=== PATIENT | male | born 1950 | race Caucasian/White ===

== ENCOUNTER → 2016-12-29 | Outpatient (CLI) | payer MEDICARE, OTHER ==
[~2016-12-29] MED LIST: ALLO300T PO; ALPH300C PO; AMLO10TA2 PO; ASCO10007 PO; ASPI-515 PO; CARV12.543 PO; CARV6.252 PO; CYAN100028 PO; DIGO125T PO; FLUT16SP2 NAS; FLUT1DIS3 INH; FURO-93 PO; FURO20TA3 PO; HYDR-3240 PO; LANS30CA PO; LEVO125T PO; LISI-467 PO; LISI40TA PO; LYSI500T3 PO; METF10002 PO; MILK87.5 PO; MONT10TA9 PO; MULT1TAB60 PO; NITR0.4T8 SL; POTA10TA11 PO; POTA20PA PO; REGADENOSON 0.4 MG/5 ML SYRINGE ONE; RIVA20TA PO; SOTA80TA18 PO; SPIR25TA3 PO; SUCR1ORA2 PO; TICA90TA PO; VITA1TAB3 PO; ZOLP10TA PO
== END | disposition home or self-care (01) ==
LOC: CFH 07:30
PROVIDERS: ATTEND Internal Medicine Cardiovascular Disease
DX: I25.10 Atherosclerotic heart disease of native coronary artery without angina pectoris (principal); I10 Essential (primary) hypertension; I48.91 Unspecified atrial fibrillation; Z98.61 Coronary angioplasty status
CPT/HCPCS: 78452; 93017; A9502; J2785

== ENCOUNTER → 2018-03-08 | Outpatient (CLI) | payer MEDICARE, OTHER ==
[~2018-03-08] MED LIST changes: +ASCO100019 PO; -ASCO10007 PO; +DAPA10TA PO; +GABA300C10 PO; +LEVO137T3 PO; +LEVO150T5 PO; +LINA1TAB5 PO; +METF850T2 PO; +NITR0.4T28 SL; -NITR0.4T8 SL; -REGADENOSON 0.4 MG/5 ML SYRINGE ONE; -SPIR25TA3 PO; +SPIR25TA5 PO; -SUCR1ORA2 PO; +SUCR1ORA5 PO
[2018-03-08 09:59] LABS: ALANINE AMINOTRANSFERASE 22 U/L (12-78); ALBUMIN 3.4 g/dL (3.4-5.0); ANION GAP 7 mmol/L (5-15); CALCIUM 8.9 mg/dL (8.5-10.1); CHLORIDE 103 mmol/L (98-107); CREATININE 1.14 mg/dL (0.7-1.3)
[2018-03-08 10:18] LABS: ALKALINE PHOSPHATASE 51 U/L (45-117); BILIRUBIN,TOTAL 0.8 mg/dL (0.2-1.0); TOTAL PROTEIN 7.1 g/dL (6.4-8.2)
== END | disposition home or self-care (01) ==
LOC: STAR 08:47
PROVIDERS: ATTEND Surgery
DX: Z01.818 Encounter for other preprocedural examination (principal); I48.91 Unspecified atrial fibrillation; E11.9 Type 2 diabetes mellitus without complications; Z85.850 Personal history of malignant neoplasm of thyroid
CPT/HCPCS: 36415; 80053; 93005

== ENCOUNTER 2018-03-15 06:06 | Day surgery (SDC) | payer MEDICARE, OTHER ==
[~2018-03-15] VITALS: Ht 175.3 cm; Wt 126.5 kg
[~2018-03-15 06:06] MED LIST changes: -POTA20PA PO; +POTA20PA31 PO
[2018-03-15 06:34] VITALS: BP 129/92
[2018-03-15] MEDS ORDERED: LACTATED RINGERS 1,000 ML IV SCH (06:34)
[2018-03-15] MEDS ORDERED: BACITRACIN 50,000 UNIT ONE (06:48)
[2018-03-15] MEDS ORDERED: BUPIVACAINE/PF-EPI 0.5% 1:200K ONE ×2 (06:48→08:48)
[2018-03-15] MEDS ORDERED: MIDAZOLAM 1 MG/ML, 2ML ONE (06:49)
[2018-03-15] MEDS ORDERED: FENTANYL PF 250 MCG/5ML ONE (06:50)
[2018-03-15] MEDS ORDERED: PROPOFOL 10 MG/ML, 20ML ONE (06:52)
[2018-03-15] MEDS ORDERED: ROCURONIUM 10MG/ML,5ML ONE (06:53)
[2018-03-15] MEDS ORDERED: GLYCOPYRROLATE 0.4 MG/2 ML, 2ML ONE (06:54)
[2018-03-15] MEDS ORDERED: NEOSTIGMINE 1 MG/ML, 10ML ONE (06:54)
[2018-03-15] MEDS ORDERED: CEFAZOLIN 1,000 MG ONE ×3 (06:55→07:37)
[2018-03-15] MEDS ORDERED: WATER-INJECTION,STERILE 10 ML IV ONE (06:55)
[2018-03-15] MEDS ORDERED: PROMETHAZINE 25 MG SUPP PR PRN (07:30)
[2018-03-15] MEDS ORDERED: OXYcodone 5 MG/5 ML ORAL.SOL UDC PO PRN (07:30)
[2018-03-15] MEDS ORDERED: PROMETHAZINE 12.5 MG SUPP PR PRN (07:30)
[2018-03-15] MEDS ORDERED: FENTANYL PF 100 MCG/2ML IV PRN (07:30)
[2018-03-15] MEDS ORDERED: LABETALOL 5MG/ML, 20ML IV PRN (07:30)
[2018-03-15] MEDS ORDERED: PROMETHAZINE 25 MG/ML, 1ML IV PRN (07:30)
[2018-03-15] MEDS ORDERED: ACETAMINOPHEN 500 MG TABLET PO ONE (07:30)
[2018-03-15] MEDS ORDERED: MEPERIDINE/PF 25MG/0.5ML IVPush PRN (07:30)
[2018-03-15] MEDS ORDERED: HYDROmorphone 1 MG/ML, 1ML IV PRN (07:30)
[2018-03-15] MEDS ORDERED: ONDANSETRON 2MG/ML, 2ML IV PRN (07:30)
[2018-03-15] MEDS ORDERED: MORPHINE SULFATE 4 MG/ML, 1ML IVPush PRN (07:30)
[2018-03-15] MEDS ORDERED: OxyconTIN ER 10 MG TAB.ER PO ONE (07:30)
[2018-03-15] MEDS ORDERED: hydrALAzine 20 MG/ML, 1ML IV PRN (07:30)
[2018-03-15] MEDS ORDERED: ONDANSETRON ODT 8 MG PO PRN (07:30)
[2018-03-15] MEDS ORDERED: GABAPENTIN 300 MG CAPSULE PO ONE (07:30)
[2018-03-15] MEDS ORDERED: LABETALOL 5MG/ML, 20ML ONE (07:55)
[2018-03-15] MEDS ORDERED: ALBUTEROL SULFATE 2.5 MG/3 ML ONE (09:27)
[2018-03-15] MEDS ORDERED: ALBUTEROL SULFATE 2.5 MG/3 ML NPPB PRN (09:30)
== END 2018-03-15 12:35 | disposition home or self-care (01) ==
LOC: OUT 06:06
PROVIDERS: ATTEND Surgery
DX: K42.0 Umbilical hernia with obstruction, without gangrene (principal); I48.91 Unspecified atrial fibrillation; I10 Essential (primary) hypertension; I25.10 Atherosclerotic heart disease of native coronary artery without angina pectoris; M10.9 Gout, unspecified; K21.9 Gastro-esophageal reflux disease without esophagitis; E11.40 Type 2 diabetes mellitus with diabetic neuropathy, unspecified; E66.9 Obesity, unspecified; Z68.41 Body mass index [BMI] 40.0-44.9, adult; G47.33 Obstructive sleep apnea (adult) (pediatric); J45.909 Unspecified asthma, uncomplicated; Z98.890 Other specified postprocedural states; Z98.52 Vasectomy status; Z72.89 Other problems related to lifestyle; Z79.899 Other long term (current) drug therapy; Z88.5 Allergy status to narcotic agent; Z88.8 Allergy status to other drugs, medicaments and biological substances
CPT/HCPCS: 49653; 82962; 94640; C1781; J0690; J2250; J2704; J2710; J3010; J7120; J7613

== ENCOUNTER → 2018-11-12 | Outpatient (CLI) | payer MEDICARE, OTHER ==
[~2018-11-12] MED LIST changes: -AMLO10TA2 PO; +AMLO10TA8 PO; +METF850T10 PO; -METF850T2 PO
== END | disposition home or self-care (01) ==
LOC: CVU 06:42
PROVIDERS: ATTEND Internal Medicine Cardiovascular Disease
DX: I08.3 Combined rheumatic disorders of mitral, aortic and tricuspid valves (principal); I48.91 Unspecified atrial fibrillation; I10 Essential (primary) hypertension
CPT/HCPCS: 93306

== ENCOUNTER → 2019-06-13 | Outpatient (CLI) | payer MEDICARE, OTHER ==
[~2019-06-13] MED LIST changes: +FURO40TA6 PO
== END | disposition home or self-care (01) ==
LOC: RAD 11:31
PROVIDERS: ATTEND Nurse Practitioner Family
DX: J44.1 Chronic obstructive pulmonary disease with (acute) exacerbation (principal); I51.7 Cardiomegaly; J98.6 Disorders of diaphragm
CPT/HCPCS: 71046

== ENCOUNTER 2019-09-09 21:03 | Emergency (ER) | payer MEDICARE, OTHER ==
[~2019-09-09] VITALS: Ht 175.3 cm; Wt 120.4 kg
[~2019-09-09 21:03] MED LIST changes: -DIGO125T PO; +DIGO125T85 PO; +MONT10TA11 PO; -MONT10TA9 PO
--- NOTE | 2019-09-09 21:37 | NUR ---
assessment made. PA at bedside.
--- NOTE | 2019-09-09 21:54 | NUR ---
ERP at bedside.
[2019-09-09] MEDS ORDERED: DIAZEPAM 5 MG TABLET ONE (21:56)
[2019-09-09] MEDS ORDERED: DIAZEPAM 5 MG TABLET PO ONE (22:00)
--- NOTE | 2019-09-09 22:00 | NUR ---
patient medicated. refused CT scan of head.
--- NOTE | 2019-09-09 22:11 | NUR ---
patient taken to X ray.
--- NOTE | 2019-09-09 22:54 | NUR ---
X ray resulted. chart up for MD to see. patient no complaints at this time.
--- NOTE | 2019-09-09 22:55 | NUR ---
chart up for re-eval.
--- NOTE | 2019-09-09 23:48 | NUR ---
PA talking to Dr. Moffett. CT Scan ordered.
[2019-09-09] MEDS ORDERED: HYDROcodone/APAP 5/325 TABLET ONE (23:55)
[2019-09-10] MEDS ORDERED: HYDROcodone/APAP 5/325 TABLET PO ONE
[2019-09-10 03:55] VITALS: BP 103/64
== END 2019-09-10 03:57 | disposition home or self-care (01) ==
LOC: ED 09-10 01:02
DX: S32.040A Wedge compression fracture of fourth lumbar vertebra, initial encounter for closed fracture (principal); S40.012A Contusion of left shoulder, initial encounter; W18.00XA Striking against unspecified object with subsequent fall, initial encounter; Y93.89 Activity, other specified; Y92.009 Unspecified place in unspecified non-institutional (private) residence as the place of occurrence of the external cause; Y99.8 Other external cause status; I25.10 Atherosclerotic heart disease of native coronary artery without angina pectoris; I48.91 Unspecified atrial fibrillation; E11.9 Type 2 diabetes mellitus without complications; I10 Essential (primary) hypertension
CPT/HCPCS: 72110; 72131; 72220; 93005; 99284; 99285

== ENCOUNTER 2020-05-10 11:27 | Inpatient (IN) | payer MEDICARE ==
[~2020-05-10] VITALS: Ht 175.3 cm; Wt 176.3 kg
[2020-05-10] VITALS (8 sets, daily range): BP systolic 97–132; BP diastolic 49–75
[~2020-05-10 11:27] MED LIST changes: +MULT-449 PO; -MULT1TAB60 PO
--- NOTE | 2020-05-10 11:48 | NUR ---
FIRST ENCOUNTERMENT: PT SENT TO ED FROM PCP D/T LOW H/H. PT STATES DOES NOT KNOW THE VALUES OF H/H BUT "IS BAD." PT ALSO HAS COMPLAINTS OF "BLACK TARRY STOOL." HX OF GIB IN 2013.
[2020-05-10] MEDS ORDERED: LEVO25TA4 PO (11:55)
[2020-05-10] MEDS ORDERED: LANS30CA PO (11:55)
[2020-05-10 12:00] LABS: BASOPHILS % (AUTO) 2 % (0-1); EOSINOPHILS % (AUTO) 2 % (1-7); LYMPHOCYTES % (AUTO) 15 % (22-44); MEAN CORPUSCULAR HEMOGLOBIN 23.6 pg (27.5-34.5); MEAN CORPUSCULAR HGB CONC 31.1 g/dL (33.2-36.2); MEAN PLATELET VOLUME 8.1 fL (7.4-10.4); MONOCYTES % (AUTO) 8 % (2-9); NEUTROPHILS % (AUTO) 73 % (42-75); PLATELET COUNT 278 x10^3/uL (130-400); RED BLOOD COUNT 2.91 x10^6/uL (4.38-5.82); RED CELL DISTRIBUTION WIDTH 20.7 % (9.4-14.8)
[2020-05-10 12:07] LABS: ANION GAP 7 mmol/L (5-15); CALCIUM 8.3 mg/dL (8.5-10.1); CHLORIDE 108 mmol/L (98-107)
[2020-05-10 12:08] LABS: INTERNATIONAL NORMALIZED RATIO 1.24 (0.93-1.1); PROTHROMBIN TIME 13.1 Seconds (9.6-11.5)
--- NOTE | 2020-05-10 12:09 | NUR ---
RN RECEIVED CRITICAL LAB VALUE FROM LAB H/H 6.9/.1. LAB VALUES [facility].
[2020-05-10 12:11] LABS: ALANINE AMINOTRANSFERASE 13 U/L (12-78); ALKALINE PHOSPHATASE 52 U/L (45-117); BILIRUBIN,TOTAL 0.5 mg/dL (0.2-1.0); CREATININE 0.96 mg/dL (0.7-1.3); TOTAL PROTEIN 6.1 g/dL (6.4-8.2)
--- NOTE | 2020-05-10 12:18 | NUR ---
RN OBTAINED TWO PIV'S 18 R AC 20 L AC. ERMD AT BEDSIDE GOING OVER POC.
[2020-05-10] MEDS ORDERED: PANTOPRAZOLE 40 MG IV IVPush ONE (12:30)
--- NOTE | 2020-05-10 12:50 | NUR ---
TASK RN-PURPLE SLIP SENT TO BLOOD BANK
[2020-05-10 12:56] LABS: ANISOCYTOSIS 1+; MD MORPH REVIEW ONLY; OVALOCYTES 1+
[2020-05-10 12:57] LABS: <PLATELET ESTIMATE> ADEQUATE; <PLT MORPHOLOGY> NORMAL PLT MORPH; HYPOCHROMIA 1+; POLYCHROMASIA 1+; TEAR DROPS 1+
--- NOTE | 2020-05-10 13:21 | NUR ---
RN VERIFIED BLOOD WITH ROBY CONNELLY. BLOOD BEING TRANSFUSED.
--- NOTE | 2020-05-10 13:36 | NUR ---
PT TOLERATING BLOOD TRANSFUSION W/O ANY S/S OF ADVERSE REACTION. URINAL PROVIDED TO PT. PT LYING IN HOSPITAL BED.
--- NOTE | 2020-05-10 14:25 | NUR ---
[employer] MAKER HELPER AT BEDSIDE ADMITTING PT.
[2020-05-10] MEDS ORDERED: ONDANSETRON ODT 4 MG PO PRN (14:30)
[2020-05-10] MEDS ORDERED: ONDANSETRON 2MG/ML, 2ML IVPush PRN (14:30)
--- NOTE | 2020-05-10 14:47 | NUR ---
PT LYING ON HOSPITAL BED WATCHING TV. NO NEEDS AT THIS TIME. FIRST UNIT OF BLOOD STILL BEING ADMINISTERED. PT TOLERATING INFUSING. RN TO CONTINUE TO MONITOR.
--- NOTE | 2020-05-10 15:14 | NUR ---
REVIEW OF CHART, ASSUME CARE OF PT AT THIS TIME.
--- NOTE | 2020-05-10 15:22 | NUR ---
REPORT TO ROBY HURTADO TO ASSUME PRIMARY CARE OF PT.
[2020-05-10] MEDS: INSULIN LISPRO 100 UNITS/ML, PEN SQ-INSULIN SCH ×2 (16:00→20:33)
--- NOTE | 2020-05-10 16:35 | NUR ---
1ST UNIT RBC COMPLETED. VSS/UPDATED ON TRANSFUSION RECORD. URINAL EMPTIED. PT UPDATED ON POC, INCLUDING NPO STATUS. PURPLE SLIP SENT TO BLOOD BANK. CALL LIGHT WITHIN REACH, PT WATCHING TV.
--- NOTE | 2020-05-10 16:58 | NUR ---
FS 56, CALL TO [facility] JEVON TO REPORT. PER JEVON, PT TO BE PLACED ON HYPOGLYCEMIC PROTOCOL AND ALLOWED CLEAR LIQUID DIET UNTIL MN. CLEAR LIQUID DIET ORDERED.
--- NOTE | 2020-05-10 17:08 | NUR ---
APPLE JUICE PROVIDED. 15 MINUTE CHECK ON BLOOD TRANSFUSION. NO ADVERSE REACTION, RATE INCREASED TO 300/HR.
--- NOTE | 2020-05-10 17:15 | NUR ---
ATTEMPT TO CALL REPORT. NURSE UNAVAILABLE, WILL CALL BACK.
--- NOTE | 2020-05-10 17:37 | NUR ---
BREAK RN: BLOOD SUGAR RECHECKED, NOW 118, CALL LIGHT WITHIN REACH, NO FURTHER NEEDS AT THIS TIME.
--- NOTE | 2020-05-10 17:40 | NUR ---
REPORT CALLED TO ROBY FREEMAN ON MEDICAL/TELEMETRY.
[2020-05-10] MEDS ORDERED: SALMETEROL INH SCH (21:00)
[2020-05-10] MEDS ORDERED: FLUTICASONE INH SCH (21:00)
[2020-05-10] MEDS: FUROSEMIDE 20 MG TABLET PO SCH (21:29)
[2020-05-10] MEDS: ZOLPIDEM 5MG TABLET PO PRN (21:29)
[2020-05-10] MEDS: PANTOPRAZOLE 40 MG IV IVPush SCH (21:29)
[2020-05-10] MEDS: GABAPENTIN 300 MG CAPSULE PO SCH (21:29)
[2020-05-11 01:59] VITALS: BP 101/61
[2020-05-11] MEDS: LEVOTHYROXINE 125 MCG TABLET PO SCH (05:45)
[2020-05-11 06:41] LABS: BASOPHILS % (AUTO) 2 % (0-1); EOSINOPHILS % (AUTO) 3 % (1-7); LYMPHOCYTES % (AUTO) 19 % (22-44); MEAN CORPUSCULAR HEMOGLOBIN 25.6 pg (27.5-34.5); MONOCYTES % (AUTO) 11 % (2-9); NEUTROPHILS % (AUTO) 66 % (42-75); PLATELET COUNT 241 x10^3/uL (130-400); RED BLOOD COUNT 2.97 x10^6/uL (4.38-5.82); RED CELL DISTRIBUTION WIDTH 21.9 % (9.4-14.8)
[2020-05-11 06:52] LABS: ALBUMIN 2.9 g/dL (3.4-5.0); ANION GAP 8 mmol/L (5-15); CALCIUM 8.1 mg/dL (8.5-10.1); CHLORIDE 109 mmol/L (98-107)
[2020-05-11] MEDS: INSULIN LISPRO 100 UNITS/ML, PEN SQ-INSULIN SCH ×4 (07:00→20:12)
[2020-05-11 07:05] LABS: ALANINE AMINOTRANSFERASE 11 U/L (12-78); ALKALINE PHOSPHATASE 47 U/L (45-117); BILIRUBIN,TOTAL 1.3 mg/dL (0.2-1.0); CREATININE 0.93 mg/dL (0.7-1.3); TOTAL PROTEIN 5.6 g/dL (6.4-8.2)
[2020-05-11] MEDS ORDERED: CHLORHEXIDINE 15 ML UDC ONE ×2 (07:32→07:52)
[2020-05-11 07:41] VITALS: BP 105/71
[2020-05-11] MEDS ORDERED: CHLORHEXIDINE 15 ML UDC MM ONE (08:00)
[2020-05-11] MEDS ORDERED: PROPOFOL 50 ML ONE (08:16)
[2020-05-11 08:23] LABS: MD SCAN
[2020-05-11] MEDS: GABAPENTIN 300 MG CAPSULE PO SCH ×2 (10:29→20:12)
[2020-05-11] MEDS: FUROSEMIDE 20 MG TABLET PO SCH ×2 (10:30→20:12)
[2020-05-11] MEDS: DIGOXIN 0.125 MG TABLET PO SCH (10:30)
[2020-05-11] MEDS: MULTIVITAMIN 1 TABLET PO SCH (10:30)
[2020-05-11] MEDS: PANTOPRAZOLE 40 MG IV IVPush SCH ×2 (10:30→20:12)
[2020-05-11] MEDS: ALLOPURINOL 300 MG TABLET PO SCH (10:30)
[2020-05-11] MEDS: MONTELUKAST 10 MG TABLET PO SCH (10:30)
[2020-05-11 12:23] VITALS: BP 104/67
[2020-05-11] MEDS: FLUTICASONE/VILANTEROL 200-25MCG/INH INH SCH (13:07)
[2020-05-11] MEDS ORDERED: MOVIPREP POWDER 1 PREP KIT PO ONE (18:00)
[2020-05-11 19:58] VITALS: BP 107/73
[2020-05-12] MEDS: ZOLPIDEM 5MG TABLET PO PRN (01:05)
[2020-05-12 01:17] VITALS: BP 104/69
[2020-05-12] MEDS: INSULIN LISPRO 100 UNITS/ML, PEN SQ-INSULIN SCH ×2 (07:00→11:00)
[2020-05-12 07:30] VITALS: BP 100/66
[2020-05-12] MEDS ORDERED: FENTANYL PF 100 MCG/2ML IV PRN (08:30)
[2020-05-12] MEDS ORDERED: PROPOFOL 50 ML ONE (08:37)
[2020-05-12 08:50] LABS: BASOPHILS % (AUTO) 1 % (0-1); EOSINOPHILS % (AUTO) 3 % (1-7); LYMPHOCYTES % (AUTO) 13 % (22-44); MEAN CORPUSCULAR HEMOGLOBIN 25.5 pg (27.5-34.5); MEAN CORPUSCULAR HGB CONC 31.9 g/dL (33.2-36.2); MEAN PLATELET VOLUME 7.8 fL (7.4-10.4); MONOCYTES % (AUTO) 8 % (2-9); NEUTROPHILS % (AUTO) 76 % (42-75); PLATELET COUNT 257 x10^3/uL (130-400); RED BLOOD COUNT 3.13 x10^6/uL (4.38-5.82); RED CELL DISTRIBUTION WIDTH 22.1 % (9.4-14.8)
[2020-05-12] MEDS ORDERED: CHLORHEXIDINE 15 ML UDC ONE (09:23)
[2020-05-12] MEDS: FLUTICASONE/VILANTEROL 200-25MCG/INH INH SCH (09:25)
[2020-05-12 09:32] LABS: MD SCAN
[2020-05-12] MEDS: PANTOPRAZOLE 40 MG IV IVPush SCH (12:07)
[2020-05-12] MEDS: FUROSEMIDE 20 MG TABLET PO SCH (12:07)
[2020-05-12] MEDS: DIGOXIN 0.125 MG TABLET PO SCH (12:08)
[2020-05-12] MEDS: MONTELUKAST 10 MG TABLET PO SCH (12:08)
[2020-05-12] MEDS: GABAPENTIN 300 MG CAPSULE PO SCH (12:08)
[2020-05-12] MEDS: MULTIVITAMIN 1 TABLET PO SCH (12:08)
[2020-05-12] MEDS: ALLOPURINOL 300 MG TABLET PO SCH (12:08)
[2020-05-12] MEDS: LEVOTHYROXINE 125 MCG TABLET PO SCH (12:09)
== END 2020-05-12 16:41 | disposition home or self-care (01) | DRG 378 ==
LOC: OR 13:13 → EDIP 13:51 → 4WST 18:31
PROVIDERS: ADMIT Internal Medicine; ATTEND Internal Medicine
PROC: 30233N1 Transfusion of Nonautologous Red Blood Cells into Peripheral Vein, Percutaneous Approach (ICD-10-PCS; 2020-05-10)
PROC: 0DB98ZX Excision of Duodenum, Via Natural or Artificial Opening Endoscopic, Diagnostic (ICD-10-PCS; 2020-05-11)
PROC: 0DB98ZZ Excision of Duodenum, Via Natural or Artificial Opening Endoscopic (ICD-10-PCS; principal; 2020-05-11 08:30)
PROC: 0DBL8ZZ Excision of Transverse Colon, Via Natural or Artificial Opening Endoscopic (ICD-10-PCS; 2020-05-12)
DX: K57.91 Diverticulosis of intestine, part unspecified, without perforation or abscess with bleeding (principal); D62 Acute posthemorrhagic anemia; I50.32 Chronic diastolic (congestive) heart failure; D68.69 Other thrombophilia; D50.9 Iron deficiency anemia, unspecified; E11.9 Type 2 diabetes mellitus without complications; E78.5 Hyperlipidemia, unspecified; E89.0 Postprocedural hypothyroidism; I11.0 Hypertensive heart disease with heart failure; I25.10 Atherosclerotic heart disease of native coronary artery without angina pectoris; I48.91 Unspecified atrial fibrillation; K31.7 Polyp of stomach and duodenum; K57.90 Diverticulosis of intestine, part unspecified, without perforation or abscess without bleeding; K63.5 Polyp of colon; Z96.653 Presence of artificial knee joint, bilateral; K21.9 Gastro-esophageal reflux disease without esophagitis; Z20.828 Contact with and (suspected) exposure to other viral communicable diseases; M10.9 Gout, unspecified; Z90.49 Acquired absence of other specified parts of digestive tract; Z79.01 Long term (current) use of anticoagulants; Z79.84 Long term (current) use of oral hypoglycemic drugs; Z82.3 Family history of stroke; Z82.49 Family history of ischemic heart disease and other diseases of the circulatory system; Z85.850 Personal history of malignant neoplasm of thyroid; Z95.5 Presence of coronary angioplasty implant and graft; Z88.5 Allergy status to narcotic agent
CPT/HCPCS: 36415; 36430; 71045; 80053; 82962; 83690; 84443; 85014; 85018; 85025; 85610; 85730; 86850; 86900; 86923; 87635; 88305; 93005; 96374; 96375; 99291; G0378; J2704; C9113; J1815; P9016

== ENCOUNTER → 2020-05-28 | Outpatient (CLI) | payer MEDICARE ==
[~2020-05-28] MED LIST changes: +AMLO-211 PO; -AMLO10TA8 PO; +ASCO500T93 PO; +CARV3.12 PO; +FERR324T5 PO; +LEVO25TA4 PO
== END | disposition home or self-care (01) ==
LOC: CVU 15:20
PROVIDERS: ATTEND Internal Medicine Cardiovascular Disease
DX: I08.1 Rheumatic disorders of both mitral and tricuspid valves (principal)
CPT/HCPCS: 93306